=== PATIENT | male | born 1980 ===

== ENCOUNTER 2016-11-10 17:24 | Emergency (ER) | payer SELFPAY ==
[2016-11-10 20:03] VITALS: BP 137/91
== END 2016-11-10 21:40 | disposition left against medical advice (07) ==
LOC: ED 17:24
DX: M54.5 Low back pain (principal); M25.551 Pain in right hip; M25.552 Pain in left hip; Z53.21 Procedure and treatment not carried out due to patient leaving prior to being seen by health care provider